=== PATIENT | female | born 1955 | race Caucasian/White ===

== ENCOUNTER → 2016-04-12 | Outpatient (CLI) | payer OTHER ==
[~2016-04-12] VITALS: Ht 157.5 cm; Wt 88.6 kg
[~2016-04-12] MED LIST: AMBEREN; ATIVAN0.5 MG PO; B-COMPLEX 100400 MC1 PO; CITRACAL + D C1 EACH PO; CYMBALTA60 MG PO; DIAZEPAM 5 MG5 M1 PO; HYDROCHLOROTH12.5 MG PO; HYDROCHLOROTHIA25 M1 PO; HYDROCODONE-AP1 EAC6 PO; KAPIDEX60 MG PO; KLOR-CON 1010 MEQ PO; LISINOPRIL40 MG PO; MEDROLDOSEPACK PO; MEGARED OMEGA-1 EAC1 PO; MOBIC7.5 MG PO; NORCO 5-325 TA1 EACH PO; TOPAMAX 25 MG T25 MG PO; TRAMADOL 50 MG50 MG PO; VITAMIN D-32000 UNIT PO; VITAMIN D1000 UNI1 PO
--- NOTE | ~2016-04-12 | HPC ---
[address] [address] PAIN MANAGEMENT CONSULTATION Name: SEB PIMENTEL Room #: REG [facility]ACHUSETTSLuis.#: [id number] Admission: 04/12/16 Attend Phys: Uriah Wood DO Discharge: Date of : 57 Report #: [id number] THIS REPORT FOR: //name// CC: Elpidio Wood The patient is a 60-year-old female last seen in the pain clinic, 03/08/2016, diagnosed with symptomatic lumbar radiculopathy secondary to spinal stenosis. The patient returns to pain clinic today for a prolonged visit, she was seen from 10 a.m. to 10:30, greater than 50% of this 25+-minute visit was spent counseling the patient. She has had two lumbar epidural injections, midline injection 01/02/2016 and bilateral transforaminal epidural injections at L4-5 on 01/23/2016, all afforded only nominal relief. Last visit 03/08/2016, we had a long discussion about therapeutic options. We entered into an opiate consent to treat contract. We did discuss consideration for surgical decompression. I referred the patient to Dr. Paresh Marie, she was seen by Dr. Marie's nurse, Myriam Pastrana, [place]. Seen 03/03/2016, they ordered flexion and extension x-rays of the lumbar spine. I reviewed those images today, I am pleased to note that there is no abnormal motion with flexion or extension. There is slight right convex lumbar scoliosis with extensive disk narrowing at multiple levels, extensive osteophyte formation was noted. We discussed a possible surgery and she is ostensibly scheduled for followup appointment with Dr. Marie in the near future. Today, she notes primarily she has axial back pain, the radicular component seems to be fairly nominal. She is a little bit distressed today as one might expect, her who has relocated to [place] has filed for divorce. She notes chronic constant heavy pressure sensation in her back, rates an 8 to 9 on a 0-10 visual analog scale, exacerbated with walking, housework, and lifting. Gets some relief with hydrocodone. PHYSICAL EXAMINATION: GENERAL: Shows a pleasant 60-year-old female, BMI is 35.7 kilograms per meter squared. VITAL SIGNS: Stable as noted in the EMR. MUSCULOSKELETAL: Tender over the SI joint. Straight leg raising, however, is negative. Lumbar flexion is good about 90 degrees. Modestly antalgic gait. Daphnie test is modestly positive, left greater than right. Lower extremity strength is symmetric. ASSESSMENT: Symptomatic lumbar radiculopathy secondary to spinal stenosis, possible component of sacroiliac joint dysfunction and primary axial back pain stable on baseline medications. RECOMMENDATION: After discussion with the patient today, we have elected to continue baseline narcotic, hydrocodone 5/325 one tablet 3 to 4 times a day, [address] [address] PAIN MANAGEMENT CONSULTATION Name: SEB PIMENTEL Room #: REG [facility] Cam#: [id number] Admission: 04/12/16 Attend Phys: Uriah Wood DO Discharge: Date of : 57 Report #: [id number] limit 120 tablets for 30 days, continue meloxicam 7.5 b.i.d. We did briefly discuss cardiac risk factors with daily nonsteroidal anti-inflammatory medications. Suggest the patient consider using this on a somewhat nondaily basis. Follow up in about 5 weeks for reevaluation. Hopefully, in the interval, she will see Dr. Marie and we can talk about moving forward with future therapeutic options. <ELECTRONICALLY SIGNED> By: Uriah Wood DO 04/14/16 0824 [id number] Uriah Wood DO /nt
[2016-04-12 09:59] VITALS: BP 113/63
== END | disposition home or self-care (01) ==
LOC: PAIN 07:23
DX: M48.06 Spinal stenosis, lumbar region (principal); G89.29 Other chronic pain

== ENCOUNTER → 2017-03-17 | Outpatient (CLI) | payer OTHER | LOC: RAD 03:30 | DX: Z12.31 Encounter for screening mammogram for malignant neoplasm of breast (principal) ==